=== PATIENT | male | born 1935 | race Caucasian/White ===

== ENCOUNTER 2018-12-17 11:06 | Day surgery (SDC) | payer MEDICARE, BC, OTHER ==
[~2018-12-17] VITALS: Ht 170.2 cm; Wt 82.5 kg
[~2018-12-17 11:06] MED LIST: CRES10TA32 PO; ELIQ5TAB PO; FINA5TAB2 PO; LIDOCAINE 1% MDV 20ML VIAL SQ PRN; LR 1,000 ML IV ONE; METF500T13 PO; OLME1TAB7 PO; OMEP20CA3 PO; TERA5CAP3 PO
[2018-12-17] MEDS ORDERED: MIDAZOLAM INJ 2 MG/2 ML VIAL (J2250) As Ordered ONE (11:21)
[2018-12-17] MEDS ORDERED: fentaNYL 100 MCG/2 ML INJECTION (J3010) As Ordered ONE (11:21)
[2018-12-17] MEDS ORDERED: PROPOFOL 500 MG/50 ML VIAL As Ordered ONE (11:22)
[2018-12-17] MEDS ORDERED: LIDOCAINE 2% INJ 100 MG/5 ML SDV (FOR ANES.) As Ordered ONE (11:25)
[2018-12-17] MEDS ORDERED: ONDANSETRON 4MG/2ML VIAL (J2405) As Ordered ONE (11:27)
[2018-12-17] MEDS ORDERED: dexameTHASONE 4 MG/ML 1ML VIAL (J1100) As Ordered ONE (11:27)
[2018-12-17] MEDS ORDERED: MUPIROCIN 2% OINT 22 GM TUBE As Ordered ONE (11:30)
[2018-12-17] MEDS ORDERED: LIDOCAINE 1% SDV INJ 30 ML VIAL As Ordered ONE (11:30)
[2018-12-17] MEDS ORDERED: VANCOMYCIN HCL 500 MG/10 ML VIAL (J3370) As Ordered ONE (11:31)
[2018-12-17] MEDS ORDERED: POLYSPORIN TOPICAL OINTMENT 15GM As Ordered ONE (11:31)
[2018-12-17] MEDS ORDERED: ISOVUE-300 61% 50ML VIAL (Q9967) As Ordered ONE (11:31)
[2018-12-17] MEDS ORDERED: PROPOFOL 200 MG/20 ML VIAL As Ordered ONE (14:09)
[2018-12-17] MEDS ORDERED: GLYCOPYRROLATE INJ 0.2 MG/ML 2 ML VIAL As Ordered ONE (14:09)
[2018-12-17] MEDS ORDERED: PHENYLephrine HCL 500 MCG/5 ML (100MCG/ML) SYRINGE (J2370) As Ordered ONE (14:16)
[2018-12-17] MEDS ORDERED: fentaNYL 100 MCG/2 ML INJECTION (J3010) IV PRN (15:30)
[2018-12-17] MEDS ORDERED: PERCOCET 5MG/325MG TAB PO PRN (15:30)
--- NOTE | 2018-12-17 15:34 | REP ---
PORTABLE CHEST: AP portable view of the chest is performed without priors for comparison. There is a left single lead pacemaker with the tip in the region of the right ventricle. There is no pneumothorax. There is linear fibroatelectatic change in the left lung base. There is mild cardiomegaly. There is calcification and tortuosity of the thoracic aorta. Electronically Signed by Kj Bryant MD 12/20/2018 11:56 A
[2018-12-17] MEDS ORDERED: ACETAMINOPHEN TAB 650MG DOSE (2X325MG) PO PRN (16:15)
--- NOTE | 2018-12-17 17:01 | REP ---
Partial chest x-ray: 12 views. History: Pacemaker insertion. 7 minutes 24 seconds of fluoroscopy time is reported. Findings: A sequence of 12 last image hold fluoroscopically obtained spot radiographs of the chest document pacemaker lead position. Electronically Signed by José Antonio Lancaster MD 12/17/2018 06:57 P
[2018-12-17 17:30] VITALS: BP 150/84
[2018-12-17 18:00] VITALS: BP 138/92
[2018-12-17 20:00] VITALS: BP 106/60
[2018-12-17 21:00] VITALS: BP 132/83
[2018-12-17] MEDS ORDERED: ROSUVASTATIN 10 MG TAB (CRESTOR) PO SCH (21:00)
--- NOTE | 2018-12-17 21:46 | RO ---
DATE OF PROCEDURE: 12/17/2018 INDICATION: Sick sinus syndrome, tachycardia/bradycardia syndrome. PREOPERATIVE DIAGNOSIS: Sick sinus syndrome, tachycardia/bradycardia syndrome. POSTOPERATIVE DIAGNOSIS: Sick sinus syndrome, tachycardia/bradycardia syndrome. FINDINGS: Sick sinus syndrome, tachycardia/bradycardia syndrome. OPERATIVE PROCEDURE: Implantation of a single chamber pacemaker. SURGEON: Jerod Valadez MD ASSURANCE ASSISTANT: None. ANESTHESIA: Lidocaine 1% local and monitored anesthetic care. BIOPSIES: None. DRAINS: None. SPECIMENS: None. ESTIMATED BLOOD LOSS: Less than 10 ml BLOOD PRODUCTS REPLACED: None given COMPLICATIONS: None. DESCRIPTION OF OPERATION: The left pectoral region was prepped and draped and 3M Ioban film was applied. Lidocaine 1% was used for local anesthetic. A left subclavian venogram was performed with a total volume of 20 mL consisting of three parts Isovue to one part sterile injectable saline which was injected via a peripheral IV in the left upper extremity. This provided a left subclavian vein venogram which was used in real time to assist with percutaneous access to the extrathoracic portion of the left subclavian vein under fluoroscopic guidance using a micropuncture needle. This was then guidewire exchanged for a guidewire that came with one of the #6-Montserratian sheaths. It was discovered that the innominate vein was very tortuous and the guidewire from the #6-Montserratian sheath could not negotiate the turn from the innominate vein into the superior vena cava. This was then guidewire exchanged for an [id number] straight tip soft tip Espinela guidewire. This was used to successfully negotiate the turn from the innominate vein into the superior vena cava. Next, a PEAK PlasmaBlade was used to make an incision 1 cm below the skin entry site and approximately parallel to the left clavicle, approximately 2.5 inches in length. The PEAK PlasmaBlade was used to get through the fatty layer and the fibrous Maranda's fascia. The pacemaker pocket was then formed in a caudal direction using blunt dissection using two fingers to separate the prepectoral fascia from the Maranda's fascia. The [id number] guidewire was then pulled through the skin into the incision site. I then used a long #6-Montserratian sheath with introducer which was advanced into the left subclavian vein, innominate vein and into the upper portion of the superior vena cava just inferior to the innominate vein. This was used for vein access for the right ventricle lead. The right ventricle lead was placed into the right ventricle and the helix was extended. The first position that the right ventricle lead was placed became electrically unsuitable over time with progressively diminishing R waves. I therefore placed the helix back into the pacemaker lead and repositioned the right ventricle lead under fluoroscopic guidance close to the right ventricle apex. It was then secured to the pectoral muscle with a total of 12 turns. This position was found to be electrically and anatomically satisfactory and no diaphragm stimulation could be palpated on either side with 10 volts high output pacing. The long sheath was then split apart and removed. The right ventricle lead was then secured to the pectoral muscle using the supplied tie-down sleeve using two individual sutures consisting of #0 Ethibond. To control bleeding from the subclavian vein, tracking the pacemaker lead to the pectoral muscle, I placed a pot suture which was successful at hemostasis. Next, I placed an #0 Ethibond suture to the pectoral muscle to serve as the tie-down for the pacemaker pulse generator. The terminal pin of the right ventricle lead was then placed into the header of the pacemaker pulse generator and secured by tightening the set screw with the hex screwdriver. The excess lead material was then placed underneath the pacemaker pulse generator and placed along with the pacemaker pulse generator into the pocket. The pacemaker pulse generator was secured to the pectoral muscle with the previously placed #0 Ethibond suture. The deep layer was closed using individual sutures consisting of #2-0 Vicryl. A few individual #3-0 Vicryl sutures were used to help approximate the more superficial layer. The skin was then closed using elena. The patient tolerated the procedure well without any immediate complications. The pacemaker pulse generator implanted was a [employer].comroni[employer]caller Edora 8 SR-T with serial #[id number]. The right ventricle lead implanted was a BiotroniTruecaller Solia F 53 which had serial #[id number]. Final testing in the operating room in bipolar configuration for the right ventricle lead showed a capture threshold of 0.7 volts in 0.4 ms with R wave amplitude of 8.3 mV and lead impendence of 643 ohms.
[2018-12-17 22:00] VITALS: BP 106/69
[2018-12-17 23:59] VITALS: BP 114/75
[2018-12-18 04:00] VITALS: BP 134/74
[2018-12-18 08:00] VITALS: BP 132/80
[2018-12-18] MEDS ORDERED: metFORMIN (GLUCOPHAGE) 500 MG TAB PO SCH (08:00)
--- NOTE | 2018-12-18 08:19 | REP ---
PA and lateral chest: Comparison is the portable chest of 12/17/2018. There is a pacemaker entering from left, unchanged. There is a surgical staple line adjacent to the pacemaker generator, unchanged. There is no pneumothorax. Lung padron are clear. Cardiac size is enlarged, unchanged. Electronically Signed by Kj Peña MD 12/18/2018 08:11 A
[2018-12-18 08:42] VITALS: BP 132/78
[2018-12-18] MEDS ORDERED: ASCORBIC ACID 250 MG TAB PO SCH (09:00)
[2018-12-18] MEDS ORDERED: OLMESARTAN MEDOXOMIL 20 MG TAB (BENICAR) PO SCH (09:00)
[2018-12-18] MEDS ORDERED: hydroCHLOROthiazide 12.5 MG CAPSULE PO SCH (09:00)
[2018-12-18] MEDS ORDERED: OMEPRAZOLE 20 MG CAP PO SCH (09:00)
[2018-12-18] MEDS ORDERED: TERAZOSIN 5 MG CAP PO SCH (09:00)
[2018-12-18] MEDS ORDERED: FINASTERIDE 5 MG TAB PO SCH (09:00)
[2018-12-18] MEDS ORDERED: amLODIPine 10 MG TAB PO SCH (09:00)
[2018-12-18] MEDS ORDERED: ASCO25TA PO (10:40)
[2018-12-18] MEDS ORDERED: Acetaminophen Tab PO (10:40)
--- NOTE | 2018-12-18 17:40 | ECGEPIP ---
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
== END 2018-12-18 13:10 | disposition home or self-care (01) ==
LOC: M SDC 11:06 → M PCU 17:16 → M SDC 12-18 13:10
PROVIDERS: ATTEND Internal Medicine Cardiovascular Disease
DX: I49.5 Sick sinus syndrome (principal); I35.9 Nonrheumatic aortic valve disorder, unspecified; I34.8 Other nonrheumatic mitral valve disorders; I48.91 Unspecified atrial fibrillation; I10 Essential (primary) hypertension; E78.5 Hyperlipidemia, unspecified; R01.1 Cardiac murmur, unspecified; E11.9 Type 2 diabetes mellitus without complications; K21.9 Gastro-esophageal reflux disease without esophagitis; Z87.891 Personal history of nicotine dependence; Z79.84 Long term (current) use of oral hypoglycemic drugs; Z79.899 Other long term (current) drug therapy; Z86.73 Personal history of transient ischemic attack (TIA), and cerebral infarction without residual deficits; Z79.01 Long term (current) use of anticoagulants
CPT/HCPCS: 33207; 71045; 71046; 76000; 93005; C1769; C1785; C1898; J0690; J1100; J2250; J2370; J2405; J3010; Q9967